=== PATIENT | female | born 1990 | race Caucasian/White ===

== ENCOUNTER 2016-09-12 23:16 | Emergency (ER) | payer BC, OTHER ==
[~2016-09-12] VITALS: Ht 152.4 cm; Wt 45.0 kg
[2016-09-12 23:24] VITALS: Ht 152.4 cm; Wt 45.0 kg
[2016-09-13] MEDS ORDERED: ACETAMINOPHEN 160 MG/5ML CUP PO STA (00:18)
[2016-09-13] MEDS ORDERED: ACETAMINOPHEN 325 MG TAB PO STA (00:19)
[2016-09-13] MEDS ORDERED: SODIUM CHLORIDE 0.9% 1L BAG IV* STA (00:19)
[2016-09-13 00:49] LABS: ADD UMIC YES; URINE BILIRUBIN (Dip) NEGATIVE (NEGATIVE); URINE BLOOD (Dip) 3+ (NEGATIVE); URINE COLOR LT. YELLOW (YELLOW); URINE GLUCOSE (Dip) NEGATIVE (NEGATIVE); URINE KETONES (Dip) TRACE (NEGATIVE); URINE LEUKOCYTE ESTERASE (Dip) 1+ (NEGATIVE); URINE NITRITE (Dip) NEGATIVE (NEGATIVE); URINE TOTAL PROTEIN (Dip) NEGATIVE (NEGATIVE); URINE UROBILINOGEN (Dip) 0.2 E.U./dL (0.1-1.0)
[2016-09-13 00:54] LABS: BASOPHILS % 0.2 % (0.0-2.0); EOSINOPHILS # 0.1 10^3/ul (0.0-0.5); EOSINOPHILS % 1.4 % (0.0-7.0); HEMATOCRIT 39.9 % (37.0-47.0); HEMOGLOBIN 13.7 g/dl (12.0-16.0); LYMPHOCYTES # 0.9 10^3/ul (0.8-2.9); LYMPHOCYTES % 9.8 % (15.0-51.0); MEAN CORPUSCULAR HEMOGLOBIN 30.3 pg (29.0-33.0); MEAN CORPUSCULAR HGB CONC 34.3 g/dl (32.0-37.0); MEAN CORPUSCULAR VOLUME 88.4 fl (82.0-101.0); MEAN PLATELET VOLUME 8.5 fl (7.4-10.4); MONOCYTE # 0.8 10^3/ul (0.3-0.9); MONOCYTES % 8.3 % (0.0-11.0); NEUTROPHIL # 7.4 10^3/ul (1.6-7.5); NEUTROPHILS % 80.3 % (39.0-77.0); PLATELET COUNT 345 10^3/UL (140-440); RED BLOOD COUNT 4.52 10^6/ul (4.20-5.40); RED CELL DISTRIBUTION WIDTH 12.6 % (11.5-14.5); UNCORRECTED WBC 9.2 10^3/ul (4.8-10.8); WHITE BLOOD COUNT 9.2 10^3/ul (4.8-10.8)
--- NOTE | 2016-09-13 00:55 | RADRPT ---
PROCEDURE: XR Chest. CLINICAL INDICATION: Possible sepsis with cough. TECHNIQUE: Single frontal view of the chest was obtained COMPARISON: None FINDINGS: The heart and mediastinum are within normal limits. The lungs are clear. There is no pleural effusion or pneumothorax. IMPRESSION: No acute disease. RPTAT: [facility] Physician Darcy Date Time Electronically viewed and signed by Bienvenido Ortega Physician on 09/13/2016 00:55 RS/
[2016-09-13 00:56] LABS: CONDITION 1
[2016-09-13 00:59] LABS: ALBUMIN 4.7 g/dl (3.3-4.9); CHLORIDE 101 mmol/L (97-110); INR 1.15; PROTIME 14.7 Sec (12.2-14.2); PT RATIO 1.1; SODIUM 141 mmol/L (135-144)
[2016-09-13 01:00] LABS: PARTIAL THROMBOPLASTIN TIME 31.5 Sec (25.0-35.0); POTASSIUM 3.5 mmol/L (3.5-5.1)
[2016-09-13 01:02] LABS: ALBUMIN/GLOBULIN RATIO 1.09; ALKALINE PHOSPHATASE 94 IU/L (42-121); ANION GAP 19 (8-16); ASPARTATE AMINO TRANSFERASE 20 IU/L (15-46); BLOOD UREA NITROGEN 14 mg/dl (7-20); CALCIUM 9.6 mg/dl (8.4-10.2); CARBON DIOXIDE 25 mmol/L (21-31); GLUCOSE 89 mg/dl (70-220)
[2016-09-13 01:03] LABS: ALANINE AMINOTRANSFERASE 26 IU/L (13-69)
[2016-09-13 01:11] LABS: BACTERIA,URINE MODERATE; SQUAMOUS EPITHELIAL CELL,UR MANY
[2016-09-13 01:21] LABS: TROPONIN-I < 0.012 ng/ml (0.00-0.12)
--- NOTE | 2016-09-13 01:31 | ERD ---
ER Documentation Chief Complaint Date/Time DATE: 09/13/16 TIME: 01:29 Chief Complaint abd. pain/fever/disla/dry cough x 4 days. HPI This is a 26 year female with abdominal pain fever headache and dry cough for this patient has had urgency and urgency of urination. No sick contacts. No nausea no vomiting. No other current complaints. ROS All systems reviewed and are negative except as per history of present illness. Allergies Allergies: Coded Allergies: No Known Allergy (Unverified , 09/12/16) PMhx/Soc Medical and Surgical Hx: pt denies Medical Hx Anesthesia Reaction: No Hx Neurological Disorder: No Hx Respiratory Disorders: No Hx Cardiac Disorders: No Hx Psychiatric Problems: No Hx Miscellaneous Medical Probl: Yes (pneumonia) Hx Alcohol Use: No Hx Substance Use: No Hx Tobacco Use: No Smoking Status: Never smoker Physical Exam Vitals Vital Signs Date Time Temp Pulse Resp B/P Pulse Ox O2 Delivery O2 Flow Rate FiO2 09/13/16 00:42 133 19 104/82 100 Room Air 09/12/16 23:24 102.5 134 20 116/68 98 Physical Exam Const: [] Head: Atraumatic Eyes: Normal Conjunctiva ENT: Normal External Ears, Nose and Mouth. Neck: Full range of motion..~ No meningismus. Resp: Clear to auscultation bilaterally Cardio: Regular rate and rhythm, no murmurs Abd: Soft, non tender, non distended. Normal bowel sounds Skin: No petechiae or rashes Back: No midline or flank tenderness Ext: No cyanosis, or edema Neur: Awake and alert Psych: Normal Mood and Affect Result Diagram: 09/13/164 09/13/16 0034 Results 24 hrs Laboratory Tests Test 09/13/16 00:34 Activated Partial Thromboplast Time 31.5Sec Alanine Aminotransferase (ALT/SGPT) 26IU/L Albumin 4.7g/dl Albumin/Globulin Ratio 1.09 Alkaline Phosphatase 94IU/L Anion Gap 19 Aspartate Amino Transf (AST/SGOT) 20IU/L Basophils # 0.010^3/ul Basophils % 0.2% Blood Urea Nitrogen 14mg/dl Calcium Level 9.6mg/dl Carbon Dioxide Level 25mmol/L Chloride Level 101mmol/L Creatinine 0.80mg/dl Direct Bilirubin 0.00mg/dl Eosinophils # 0.110^3/ul Eosinophils % 1.4% Globulin 4.30g/dl Glucose Level 89mg/dl Hematocrit 39.9% Hemoglobin 13.7g/dl INR International Normalized Ratio 1.15 Indirect Bilirubin 0.0mg/dl Lactic Acid Level 1.2mmol/L Lymphocytes # 0.910^3/ul Lymphocytes % 9.8% Mean Corpuscular Hemoglobin 30.3pg Mean Corpuscular Hemoglobin Concent 34.3g/dl Mean Corpuscular Volume 88.4fl Mean Platelet Volume 8.5fl Monocytes # 0.810^3/ul Monocytes % 8.3% Neutrophils # 7.410^3/ul Neutrophils % 80.3% Nucleated Red Blood Cells # 0.010^3/ul Nucleated Red Blood Cells % 0.0/100WBC Platelet Count 67942^3/UL Potassium Level 3.5mmol/L Prothrombin Time 14.7Sec Prothrombin Time Ratio 1.1 Red Blood Count 4.5210^6/ul Red Cell Distribution Width 12.6% Sodium Level 141mmol/L Total Bilirubin 0.0mg/dl Total Protein 9.0g/dl Troponin I < 0.012ng/ml Urine Bacteria MODERATE Urine Bilirubin NEGATIVE Urine Clarity SL HAZY Urine Color LT. YELLOW Urine Glucose NEGATIVE% Urine Hemoglobin 3+ Urine Ketones TRACE Urine Leukocyte Esterase 1+ Urine Microscopic RBC 5-10/HPF Urine Microscopic WBC 5-10/HPF Urine Nitrite NEGATIVE Urine Specific [place] 1.020 Urine Squamous Epithelial Cells MANY Urine Total Protein NEGATIVE Urine Urobilinogen 0.2 E.U./dL Urine pH 6.0 White Blood Count 9.210^3/ul Current Medications Medications (Trade) Dose Ordered Sig/Jyoti Route PRN Reason Start Time Stop Time Status Last Admin Dose Admin Acetaminophen (Tylenol Liquid) 675 mg ONCE STAT PO 09/13/16 00:18 09/13/16 00:20 DC Sodium Chloride (NS) 1,400 ml BOLUS OVER 2 HOURS STAT IV* 09/13/16 00:19 09/13/16 00:21 DC 09/13/16 00:37 Acetaminophen (Tylenol Tab) 650 mg ONCE STAT PO 09/13/16 00:19 09/13/16 00:21 DC 09/13/16 00:37 Procedures/MDM EKG: Rate/Rhythm: Normal Sinus Rhythm QRS, ST, T-waves: No changes consistent w/ acute ischemia Impression: No evidence of ischemia or arrhythmia Chest X-ray 1V Interpreted by me: Soft Tissue: No acute abnormalities Bones: No acute abnormalities Mediastinum/Cardiac Silhouette/Lungs: No acute abnormalities Blood and urine cultures pending Urinalysis shows bacteria and positive leukoesterase Lactic acid negative Medical decision-m[age] year female as well as to be a viral-like syndrome along with UTI. At this point is stable. She decision with Mimi Blancas and told to follow-up with primary care with you. Return for worsening symptoms. No evidence of sepsis. No evidence of increased infection noted. Departure Diagnosis: Primary Impression: UTI (urinary tract infection) Urinary tract infection type: acute cystitis Hematuria presence: without hematuria Qualified Code: N30.00 - Acute cystitis without hematuria Additional Impression: Viral syndrome Condition: Stable STIVEN BETANCUR Sep 13, 2016 01:31
[2016-09-13] MEDS ORDERED: CIPR500T4 PO (01:33)
[2016-09-13] MEDS ORDERED: ONDA-43 PO (01:33)
[2016-09-13 02:00] VITALS: BP 107/64; RESP 15; TEMP 99.3
[2016-09-13 02:35] VITALS: PULSE 105
== END 2016-09-13 02:36 | disposition home or self-care (01) ==
LOC: E/R 23:16
DX: N30.00 Acute cystitis without hematuria (principal); B34.9 Viral infection, unspecified; R40.2142 Coma scale, eyes open, spontaneous, at arrival to emergency department; R40.2252 Coma scale, best verbal response, oriented, at arrival to emergency department; R40.2362 Coma scale, best motor response, obeys commands, at arrival to emergency department
CPT/HCPCS: 36415; 71010; 80053; 81001; 83605; 84484; 85025; 85610; 85730; 87040; 87086; 93005; J7030; Z7502; Z7610; 81003